=== PATIENT | female | born 1955 | race Caucasian/White ===

== ENCOUNTER → 2017-05-20 | Outpatient (CLI) | payer OTHER ==
--- NOTE | 2017-05-20 08:39 | RAD ---
Ultrasound of the right upper quadrant of the abdomen May 20, 2017 CLINICAL HISTORY: Elevated liver function tests. TECHNIQUE: A real-time ultrasound examination of the right upper quadrant of the abdomen was performed. Multiple images were obtained. FINDINGS: The gallbladder is well-distended. No gallstones are visualized. The gallbladder wall thickness is within normal limits. No pericholecystic fluid is seen. The common bile duct measures 3.5 mm in diameter which is within normal limits. The liver is normal in size measuring 14.2 cm in length. No focal abnormality of the liver seen. The right kidney and visualized portions of pancreas are within normal limits. IMPRESSION: Negative study. Electronically signed by: Christos Healy MD (05/20/2017 8:36 AM) [id number]
== END | disposition home or self-care (01) ==
LOC: US 07:30
PROVIDERS: ATTEND Family Medicine
DX: K82.8 Other specified diseases of gallbladder (principal); R79.89 Other specified abnormal findings of blood chemistry
CPT/HCPCS: 76705